=== PATIENT | male | born 1940 | race Caucasian/White ===

== ENCOUNTER 2018-01-03 23:10 | Inpatient (IN) | payer MEDICARE, OTHER ==
[2018-01-03] MEDS: ONDANSETRON 4 MG INJ IV (23:25)
[2018-01-03] MEDS: SOD CHLORIDE 0.9% 1,000 ML IV (23:25)
[2018-01-03 23:54] LABS: ADD MAN DIFF? NO
[2018-01-03 23:58] LABS: BASOPHIL # 0.1 10^3/ul (0.0-0.1); BASOPHILS % 0.5 % (0.0-2.0); EOSINOPHILS # 0.1 10^3/ul (0.0-0.5); EOSINOPHILS % 1.1 % (0.0-7.0); HEMATOCRIT 33.8 % (42.0-52.0); HEMOGLOBIN 11.7 g/dl (14.0-18.0); LYMPHOCYTES # 1.2 10^3/ul (0.8-2.9); LYMPHOCYTES % 11.9 % (15.0-51.0); MEAN CORPUSCULAR HEMOGLOBIN 29.3 pg (29.0-33.0); MEAN CORPUSCULAR HGB CONC 34.6 g/dl (32.0-37.0); MEAN CORPUSCULAR VOLUME 84.5 fl (82.0-101.0); MEAN PLATELET VOLUME 10.7 fl (7.4-10.4); MONOCYTE # 0.8 10^3/ul (0.3-0.9); MONOCYTES % 8.4 % (0.0-11.0); NEUTROPHIL # 7.6 10^3/ul (1.6-7.5); NEUTROPHILS % 77.4 % (39.0-77.0); PLATELET COUNT 224 10^3/UL (140-415); RED CELL DISTRIBUTION WIDTH 13.4 % (11.5-14.5)
[2018-01-03 23:58] LABS: WHITE BLOOD COUNT 9.8 10^3/ul (4.8-10.8)
[2018-01-04 00:15] LABS: ALANINE AMINOTRANSFERASE 27 IU/L (13-69); ALBUMIN 3.7 g/dl (3.3-4.9); ALBUMIN/GLOBULIN RATIO 1.27; ALKALINE PHOSPHATASE 108 IU/L (42-121); ANION GAP 18 (8-16); ASPARTATE AMINO TRANSFERASE 21 IU/L (15-46); BILIRUBIN,INDIRECT 0.5 mg/dl (0-1.1); BILIRUBIN,TOTAL 0.5 mg/dl (0.2-1.3); BLOOD UREA NITROGEN 31 mg/dl (7-20); CALCIUM 8.5 mg/dl (8.4-10.2); CARBON DIOXIDE 18 mmol/L (21-31); CHLORIDE 100 mmol/L (97-110); CREATININE 1.35 mg/dl (0.61-1.24); LIPASE 760 U/L (23-300); POTASSIUM 4.2 mmol/L (3.5-5.1); SODIUM 132 mmol/L (135-144); TOTAL PROTEIN 6.6 g/dl (6.1-8.1)
[2018-01-04 00:26] LABS: TROPONIN-I 0.039 ng/ml (0.000-0.120)
[2018-01-04 00:29] LABS: GLUCOSE 741 mg/dl (70-220)
[2018-01-04 00:50] LABS: ADD UMIC YES; UR ASCORBIC ACID 20 mg/dL (NEGATIVE); UR BACTERIA FEW /HPF (NONE SEEN); UR BILIRUBIN (Dip) NEGATIVE (NEGATIVE); UR BLOOD (Dip) 1+ mg/dL (NEGATIVE); UR CLARITY TURBID (CLEAR); UR COLOR YELLOW (YELLOW); UR GLUCOSE (Dip) 3+ mg/dL (NEGATIVE); UR KETONES (Dip) TRACE mg/dL (NEGATIVE); UR LEUKOCYTE ESTERASE (Dip) 3+ Leu/ul (NEGATIVE); UR NITRITE (Dip) NEGATIVE (NEGATIVE); UR NONSQUAMOUS EPITHELIAL CELL 2 /HPF (NONE SEEN); UR RBC 13 /HPF (0-5); UR SPECIFIC GRAVITY (Dip) 1.023 (1.003-1.030); UR SQUAMOUS EPITHELIAL CELL FEW /HPF (FEW); UR TOTAL PROTEIN (Dip) 2+ mg/dl (NEGATIVE); UR UROBILINOGEN (Dip) NEGATIVE (NEGATIVE); UR WBC > 182 /HPF (0-5)
[2018-01-04 01:02] LABS: B-TYPE NATRIURETIC PEPTIDE 993 PG/ML (0-450)
[2018-01-04] MEDS: CEFEPIME 2GM/50 ML (PMX) 50 ML IVPB (01:41)
[2018-01-04] MEDS: LACTATED RINGER'S 1,000 ML IV (02:06)
[2018-01-04] MEDS: DIPHENHYDRAMINE 50 MG INJ IV (02:10)
[2018-01-04] MEDS: morphine 2 MG INJ IV (02:10)
[2018-01-04] MEDS ORDERED: ONDANSETRON 4 MG INJ IV (02:30)
[2018-01-04] MEDS ORDERED: BISACODYL (EC) 5 MG TAB PO (02:30)
[2018-01-04] MEDS ORDERED: ALBUTEROL HFA 8 GM INHALER INH (02:30)
[2018-01-04] MEDS ORDERED: INSULIN HUMAN REGULAR 100 UNIT in SOD CHLORIDE 0.9% 99 ML IV (02:30)
[2018-01-04] MEDS ORDERED: DEXTROSE 50% 50 ML SYRINGE IV ×4 (02:30→18:00)
[2018-01-04] MEDS: ACCU-CHEK XX ×11 (02:30→12:29)
[2018-01-04] MEDS: INSULIN HUMAN REGULAR 100 UNIT in SOD CHLORIDE 0.9% 99 ML IV (02:41)
[2018-01-04] MEDS: LEVOFLOXACIN 500MG/D5W (PMX) 100 ML IVPB (03:23)
[2018-01-04 03:28] LABS: ANION GAP 14 (8-16); BLOOD UREA NITROGEN 28 mg/dl (7-20); CARBON DIOXIDE 21 mmol/L (21-31); CHLORIDE 106 mmol/L (97-110); CREATININE 1.18 mg/dl (0.61-1.24); POTASSIUM 3.5 mmol/L (3.5-5.1); SODIUM 137 mmol/L (135-144)
[2018-01-04 03:43] LABS: GLUCOSE 601 mg/dl (70-220)
[2018-01-04] MEDS: morphine 4 MG/ML VIAL IV (03:58)
[2018-01-04] MEDS: VANCOMYCIN 1 GM (PMX) 250 ML IVPB (04:31)
[2018-01-04] MEDS: SOD CHLORIDE 0.9% 1,000 ML IV (05:29)
[2018-01-04 06:37] LABS: ADD MAN DIFF? NO
[2018-01-04 06:48] LABS: WHITE BLOOD COUNT 9.4 10^3/ul (4.8-10.8)
[2018-01-04 06:48] LABS: BASOPHIL # 0.1 10^3/ul (0.0-0.1); BASOPHILS % 0.5 % (0.0-2.0); EOSINOPHILS # 0.2 10^3/ul (0.0-0.5); EOSINOPHILS % 1.6 % (0.0-7.0); HEMOGLOBIN 10.5 g/dl (14.0-18.0); LYMPHOCYTES # 1.3 10^3/ul (0.8-2.9); LYMPHOCYTES % 14.1 % (15.0-51.0); MEAN CORPUSCULAR HEMOGLOBIN 28.5 pg (29.0-33.0); MEAN CORPUSCULAR HGB CONC 33.9 g/dl (32.0-37.0); MEAN CORPUSCULAR VOLUME 84.2 fl (82.0-101.0); MEAN PLATELET VOLUME 10.6 fl (7.4-10.4); MONOCYTES % 11.1 % (0.0-11.0); NEUTROPHIL # 6.8 10^3/ul (1.6-7.5); NEUTROPHILS % 72.1 % (39.0-77.0); PLATELET COUNT 215 10^3/UL (140-415); RED BLOOD COUNT 3.68 10^6/ul (4.70-6.10); RED CELL DISTRIBUTION WIDTH 13.6 % (11.5-14.5)
[2018-01-04 06:57] LABS: HEMOGLOBIN A1C 12.1 % (0-5.9)
[2018-01-04 07:06] LABS: ALANINE AMINOTRANSFERASE 22 IU/L (13-69); ALBUMIN 3.2 g/dl (3.3-4.9); ALBUMIN/GLOBULIN RATIO 1.18; ALKALINE PHOSPHATASE 85 IU/L (42-121); ANION GAP 13 (8-16); ASPARTATE AMINO TRANSFERASE 18 IU/L (15-46); BILIRUBIN,INDIRECT 0.4 mg/dl (0-1.1); BILIRUBIN,TOTAL 0.4 mg/dl (0.2-1.3); BLOOD UREA NITROGEN 27 mg/dl (7-20); CALCIUM 8.4 mg/dl (8.4-10.2); CARBON DIOXIDE 22 mmol/L (21-31); CHLORIDE 110 mmol/L (97-110); GLUCOSE 269 mg/dl (70-220); LACTATE DEHYDROGENASE 401 IU/L (313-618); POTASSIUM 3.6 mmol/L (3.5-5.1); SODIUM 141 mmol/L (135-144); TOTAL PROTEIN 5.9 g/dl (6.1-8.1)
[2018-01-04] MEDS: [UNRECOGNIZED DRUG - REMARK] XX (08:00)
[2018-01-04] MEDS: TAMSULOSIN (SR) 0.4 MG CAP PO ×2 (08:43→20:44)
[2018-01-04] MEDS: APIXABAN 5 MG TABLET PO ×2 (08:43→20:44)
[2018-01-04] MEDS: DUTASTERIDE 0.5 MG CAP PO (08:43)
[2018-01-04] MEDS ORDERED: CEFTRIAXONE 1 GM/50 ML (PMX) 50 ML IVPB (09:00)
[2018-01-04] MEDS: MEROPENEM 1 GM/50ML(PMX) 50 ML IVPB ×3 (10:14→22:32)
[2018-01-04] MEDS: INSULIN GLARGINE [LANTus] (100 UNITS/ML) SYG SC (16:30)
[2018-01-04] MEDS ORDERED: GLUCOSE GEL 15 GRAM TUBE PO ×2 (18:00)
[2018-01-04] MEDS ORDERED: GLUCOSE GEL 15 GRAM TUBE BUCCAL (18:00)
[2018-01-04] MEDS ORDERED: GLUCAGON 1 MG INJ IM (18:00)
[2018-01-04] MEDS: INSULIN ASPART [NOVOLOG] 3 ML PEN SC ×3 (18:04→20:52)
[2018-01-04] MEDS: SENNA/DOCUSATE NA (8.6MG/50MG) TAB PO (20:44)
[2018-01-04] MEDS: ATORVASTATIN 80 MG TAB PO (20:44)
[2018-01-05] MEDS: ACCU-CHEK XX (02:00)
[2018-01-05 05:40] LABS: WHITE BLOOD COUNT 8.7 10^3/ul (4.8-10.8)
[2018-01-05 05:40] LABS: ADD MAN DIFF? NO; BASOPHILS % 0.3 % (0.0-2.0); EOSINOPHILS # 0.2 10^3/ul (0.0-0.5); EOSINOPHILS % 2.1 % (0.0-7.0); HEMATOCRIT 33.2 % (42.0-52.0); HEMOGLOBIN 11.3 g/dl (14.0-18.0); LYMPHOCYTES # 0.8 10^3/ul (0.8-2.9); LYMPHOCYTES % 8.6 % (15.0-51.0); MEAN CORPUSCULAR HEMOGLOBIN 29.9 pg (29.0-33.0); MEAN CORPUSCULAR VOLUME 87.8 fl (82.0-101.0); MEAN PLATELET VOLUME 10.9 fl (7.4-10.4); MONOCYTE # 0.9 10^3/ul (0.3-0.9); MONOCYTES % 9.7 % (0.0-11.0); NEUTROPHIL # 6.9 10^3/ul (1.6-7.5); NEUTROPHILS % 78.7 % (39.0-77.0); PLATELET COUNT 181 10^3/UL (140-415); RED BLOOD COUNT 3.78 10^6/ul (4.70-6.10); RED CELL DISTRIBUTION WIDTH 13.9 % (11.5-14.5)
[2018-01-05] MEDS: MEROPENEM 1 GM/50ML(PMX) 50 ML IVPB ×3 (05:50→21:50)
[2018-01-05 06:20] LABS: ANION GAP 13 (8-16); BLOOD UREA NITROGEN 19 mg/dl (7-20); CALCIUM 8.1 mg/dl (8.4-10.2); CARBON DIOXIDE 18 mmol/L (21-31); CHLORIDE 114 mmol/L (97-110); CREATININE 0.87 mg/dl (0.61-1.24); GLUCOSE 265 mg/dl (70-220); POTASSIUM 3.6 mmol/L (3.5-5.1); SODIUM 141 mmol/L (135-144)
[2018-01-05] MEDS: INSULIN ASPART [NOVOLOG] 3 ML PEN SC ×6 (09:41→20:52)
[2018-01-05] MEDS: APIXABAN 5 MG TABLET PO ×2 (10:03→20:44)
[2018-01-05] MEDS: TAMSULOSIN (SR) 0.4 MG CAP PO ×2 (10:03→20:44)
[2018-01-05] MEDS: DUTASTERIDE 0.5 MG CAP PO (11:54)
[2018-01-05] MEDS: SENNA/DOCUSATE NA (8.6MG/50MG) TAB PO ×2 (20:44→21:00)
[2018-01-05] MEDS: ATORVASTATIN 80 MG TAB PO (20:44)
[2018-01-05] MEDS: INSULIN GLARGINE [LANTus] (100 UNITS/ML) SYG SC (20:51)
[2018-01-05] MEDS: FLUCONAZOLE 200 MG TAB PO (21:51)
[2018-01-06] MEDS: ACETAMINOPHEN 325 MG TAB PO ×2 (01:38→21:58)
[2018-01-06] MEDS: MEROPENEM 1 GM/50ML(PMX) 50 ML IVPB ×2 (06:16→13:22)
[2018-01-06] MEDS: ACCU-CHEK XX (06:16)
[2018-01-06] MEDS: INSULIN ASPART [NOVOLOG] 3 ML PEN SC ×7 (08:39→21:05)
[2018-01-06] MEDS: APIXABAN 5 MG TABLET PO ×2 (08:47→21:02)
[2018-01-06] MEDS: TAMSULOSIN (SR) 0.4 MG CAP PO ×2 (08:47→21:02)
[2018-01-06] MEDS: DUTASTERIDE 0.5 MG CAP PO (08:48)
[2018-01-06] MEDS: ASPIRIN (EC) 81 MG TAB PO (20:00)
[2018-01-06] MEDS: FLUCONAZOLE 200 MG TAB PO (21:01)
[2018-01-06] MEDS: SENNA/DOCUSATE NA (8.6MG/50MG) TAB PO (21:01)
[2018-01-06] MEDS: ATORVASTATIN 80 MG TAB PO (21:02)
[2018-01-06] MEDS: INSULIN GLARGINE [LANTus] (100 UNITS/ML) SYG SC (21:06)
[2018-01-07] MEDS: ACCU-CHEK XX (02:20)
[2018-01-07 05:48] LABS: ADD MAN DIFF? NO
[2018-01-07 05:49] LABS: WHITE BLOOD COUNT 6.6 10^3/ul (4.8-10.8)
[2018-01-07 05:49] LABS: BASOPHILS % 0.3 % (0.0-2.0); EOSINOPHILS # 0.2 10^3/ul (0.0-0.5); EOSINOPHILS % 3.6 % (0.0-7.0); HEMATOCRIT 32.7 % (42.0-52.0); HEMOGLOBIN 10.9 g/dl (14.0-18.0); LYMPHOCYTES # 1.2 10^3/ul (0.8-2.9); LYMPHOCYTES % 18.5 % (15.0-51.0); MEAN CORPUSCULAR HGB CONC 33.3 g/dl (32.0-37.0); MEAN PLATELET VOLUME 10.6 fl (7.4-10.4); MONOCYTE # 0.6 10^3/ul (0.3-0.9); MONOCYTES % 9.3 % (0.0-11.0); NEUTROPHIL # 4.4 10^3/ul (1.6-7.5); NEUTROPHILS % 67.5 % (39.0-77.0); PLATELET COUNT 220 10^3/UL (140-415); RED BLOOD COUNT 3.76 10^6/ul (4.70-6.10); RED CELL DISTRIBUTION WIDTH 14.2 % (11.5-14.5)
[2018-01-07 06:07] LABS: INR 1.24; PROTIME 15.8 Sec (11.9-14.9); PT RATIO 1.2
[2018-01-07 06:11] LABS: PHOSPHORUS 3.6 mg/dl (2.5-4.9)
[2018-01-07] MEDS: ASPIRIN (EC) 81 MG TAB PO (08:34)
[2018-01-07] MEDS: APIXABAN 5 MG TABLET PO ×2 (08:34→20:26)
[2018-01-07] MEDS: FLUCONAZOLE 200 MG TAB PO (08:34)
[2018-01-07] MEDS: DUTASTERIDE 0.5 MG CAP PO (08:35)
[2018-01-07] MEDS: TAMSULOSIN (SR) 0.4 MG CAP PO ×2 (08:35→20:26)
[2018-01-07] MEDS: INSULIN ASPART [NOVOLOG] 3 ML PEN SC ×7 (08:36→20:29)
[2018-01-07] MEDS ORDERED: ENOXAPARIN 40 MG/0.4 ML SYG SC (09:00)
[2018-01-07] MEDS: ATORVASTATIN 80 MG TAB PO (20:26)
[2018-01-07] MEDS: SENNA/DOCUSATE NA (8.6MG/50MG) TAB PO (20:26)
[2018-01-07] MEDS: INSULIN GLARGINE [LANTus] (100 UNITS/ML) SYG SC (23:05)
[2018-01-08] MEDS: ACCU-CHEK XX (02:00)
[2018-01-08 05:37] LABS: ADD MAN DIFF? NO
[2018-01-08 05:50] LABS: WHITE BLOOD COUNT 7.9 10^3/ul (4.8-10.8)
[2018-01-08 05:50] LABS: BASOPHILS % 0.5 % (0.0-2.0); EOSINOPHILS # 0.2 10^3/ul (0.0-0.5); EOSINOPHILS % 3.1 % (0.0-7.0); HEMATOCRIT 32.7 % (42.0-52.0); HEMOGLOBIN 10.9 g/dl (14.0-18.0); LYMPHOCYTES # 1.3 10^3/ul (0.8-2.9); LYMPHOCYTES % 15.9 % (15.0-51.0); MEAN CORPUSCULAR HEMOGLOBIN 29.1 pg (29.0-33.0); MEAN CORPUSCULAR HGB CONC 33.3 g/dl (32.0-37.0); MEAN CORPUSCULAR VOLUME 87.4 fl (82.0-101.0); MEAN PLATELET VOLUME 10.6 fl (7.4-10.4); MONOCYTE # 0.7 10^3/ul (0.3-0.9); MONOCYTES % 8.9 % (0.0-11.0); NEUTROPHIL # 5.6 10^3/ul (1.6-7.5); PLATELET COUNT 256 10^3/UL (140-415); RED BLOOD COUNT 3.74 10^6/ul (4.70-6.10); RED CELL DISTRIBUTION WIDTH 14.1 % (11.5-14.5)
[2018-01-08 06:28] LABS: ALANINE AMINOTRANSFERASE 23 IU/L (13-69); ALBUMIN 2.9 g/dl (3.3-4.9); ALKALINE PHOSPHATASE 73 IU/L (42-121); ANION GAP 11 (8-16); ASPARTATE AMINO TRANSFERASE 21 IU/L (15-46); BILIRUBIN,INDIRECT 0.3 mg/dl (0-1.1); BILIRUBIN,TOTAL 0.3 mg/dl (0.2-1.3); BLOOD UREA NITROGEN 20 mg/dl (7-20); CALCIUM 8.3 mg/dl (8.4-10.2); CARBON DIOXIDE 19 mmol/L (21-31); CHLORIDE 113 mmol/L (97-110); CREATININE 0.93 mg/dl (0.61-1.24); GLUCOSE 279 mg/dl (70-220); POTASSIUM 3.5 mmol/L (3.5-5.1); SODIUM 139 mmol/L (135-144); TOTAL PROTEIN 5.8 g/dl (6.1-8.1)
[2018-01-08] MEDS: DUTASTERIDE 0.5 MG CAP PO (08:36)
[2018-01-08] MEDS: ASPIRIN (EC) 81 MG TAB PO (08:36)
[2018-01-08] MEDS: APIXABAN 5 MG TABLET PO ×2 (08:36→21:58)
[2018-01-08] MEDS: TAMSULOSIN (SR) 0.4 MG CAP PO ×2 (08:36→21:58)
[2018-01-08] MEDS: FLUCONAZOLE 200 MG TAB PO (08:36)
[2018-01-08] MEDS: INSULIN ASPART [NOVOLOG] 3 ML PEN SC ×7 (08:42→22:05)
[2018-01-08 19:07] LABS: PROSTATE SPECIFIC ANTIGEN 0.5 ng/ml (0.0-4.0)
[2018-01-08] MEDS: SENNA/DOCUSATE NA (8.6MG/50MG) TAB PO (21:58)
[2018-01-08] MEDS: ATORVASTATIN 80 MG TAB PO (22:02)
[2018-01-08] MEDS: INSULIN GLARGINE [LANTus] (100 UNITS/ML) SYG SC (22:06)
[2018-01-09] MEDS: ACCU-CHEK XX (01:54)
[2018-01-09 06:51] LABS: PROSTATE SPECIFIC ANTIGEN 0.5 ng/ml (0.0-4.0)
[2018-01-09] MEDS: INSULIN ASPART [NOVOLOG] 3 ML PEN SC ×7 (08:38→20:18)
[2018-01-09] MEDS: ASPIRIN (EC) 81 MG TAB PO (08:39)
[2018-01-09] MEDS: DUTASTERIDE 0.5 MG CAP PO (08:39)
[2018-01-09] MEDS: TAMSULOSIN (SR) 0.4 MG CAP PO ×2 (08:41→20:17)
[2018-01-09] MEDS: APIXABAN 5 MG TABLET PO ×2 (08:41→20:17)
[2018-01-09] MEDS: FLUCONAZOLE 200 MG TAB PO (08:41)
[2018-01-09] MEDS: ATORVASTATIN 80 MG TAB PO (20:17)
[2018-01-09] MEDS: SENNA/DOCUSATE NA (8.6MG/50MG) TAB PO (20:17)
[2018-01-09] MEDS: INSULIN GLARGINE [LANTus] (100 UNITS/ML) SYG SC (20:23)
== END 2018-01-09 21:05 | disposition home or self-care (01) | DRG 727 ==
LOC: E/R 23:10 → MS1 01-05 04:44 → ICU 01-04 01:56
DX: B37.41 Candidal cystitis and urethritis (principal); E11.10 Type 2 diabetes mellitus with ketoacidosis without coma; I42.9 Cardiomyopathy, unspecified; D68.69 Other thrombophilia; B37.49 Other urogenital candidiasis; E11.65 Type 2 diabetes mellitus with hyperglycemia; I48.0 Paroxysmal atrial fibrillation; I50.9 Heart failure, unspecified; D64.9 Anemia, unspecified; I25.10 Atherosclerotic heart disease of native coronary artery without angina pectoris; N40.1 Benign prostatic hyperplasia with lower urinary tract symptoms; R35.0 Frequency of micturition; Z79.4 Long term (current) use of insulin; Z79.02 Long term (current) use of antithrombotics/antiplatelets; Z79.82 Long term (current) use of aspirin; Z87.891 Personal history of nicotine dependence; Z95.5 Presence of coronary angioplasty implant and graft
CPT/HCPCS: 36415; 74018; 76856; 80048; 80053; 81001; 82962; 83036; 83615; 83690; 83735; 83880; 84100; 84153; 84154; 84484; 85025; 85610; 87086; 93005; 96374; 97161; 99285-25